=== PATIENT | female | born 1965 | race Caucasian/White ===

== ENCOUNTER 2017-10-23 09:52 | Outpatient (CLI) | payer OTHER | END 2017-10-23 16:07 | disposition home or self-care (01) | LOC: TOM 09:52 | DX: R10.2 Pelvic and perineal pain (principal) ==

== ENCOUNTER 2018-10-14 07:52 | Outpatient (CLI) | payer OTHER | END 2018-10-14 08:00 | disposition home or self-care (01) | LOC: NUCLEAR 07:52 | DX: I11.9 Hypertensive heart disease without heart failure (principal); I51.9 Heart disease, unspecified; I34.0 Nonrheumatic mitral (valve) insufficiency; E88.81 Metabolic syndrome and other insulin resistance; R73.01 Impaired fasting glucose ==

== ENCOUNTER → 2024-09-01 | Emergency (ER) | payer OTHER ==
[~2024-09-01] VITALS: Ht 165.1 cm; Wt 86.2 kg
[~2024-09-01] MED LIST: 0.9 % SODIUM CHLORIDE 1,000 ML IV STA; CLONAZEPAM0.25 MG; HYZAAR 100-251 EACH; MORPHINE SULFATE 4 MG/ML VIAL IV STA
[2024-09-01 10:11] LABS: HEMATOCRIT 39.9 % (36.0-45.00); HEMOGLOBIN 13.5 g/dL (12.0-15.00); MEAN CELL VOLUME 92.8 fL (80.00-100.00); MEAN CORPUSCULAR HEMOGLOBIN 31.4 pg (27.00-32.0); MEAN CORPUSCULAR HGB CONC 33.8 g/dl (32.0-36.0); PLATELET COUNT 422 K/uL (150-450); RED BLOOD COUNT 4.29 M/uL (4.00-6.00); RED CELL DISTRIBUTION WIDTH 15.1 % (11.5-14.5)
[2024-09-01 10:44] LABS: ALBUMIN 3.7 gm/dL (3.4-5.0); ALKALINE PHOSPHATASE 136 U/L (50-136); ALT/SGPT 29 U/L (12-78); ANION GAP 11 (10.0-20.0); AST/SGOT 15 U/L (15-37); BILIRUBIN TOTAL 0.42 mg/dL (0.3-1.2); BILIRUBIN,CONJUGATED < 0.10 mg/dL (0.0-0.2); BILIRUBIN,UNCONJUGATED 0.32 mg/dL (0.0-0.6); BLOOD UREA NITROGEN 12 mg/dL (7-18); BUN CREA RATIO 14 (7.0-25.0); CALCIUM 10.2 mg/dL (8.5-10.1); CARBON DIOXIDE 26 mEq/L (21-32); CHLORIDE 107 mmol/L (98-107); CREATININE SERUM 0.88 mg/dL (0.55-1.02); GFR 66.23; GLUCOSE FASTING 94 mg/dL (65-100); OSMOLALITY SERUM 279 MOSM/KG (275-295); POTASSIUM 3.63 mEq/L (3.5-5.1); SODIUM 140 mmol/L (136-145); TOTAL PROTEIN 7.9 gm/dL (6.4-8.2)
[2024-09-01 12:40] LABS: URINE APPEARANCE Clear; URINE BILIRRUBIN Negative (NEGATIVE); URINE BLOOD Negative; URINE COLOR Yellow; URINE GLUCOSE Negative (NEGATIVE); URINE KETONE Negative (NEGATIVE); URINE LEUKOCYTE Large; URINE NITRATE Negative; URINE PROTEIN Negative (NEGATIVE); URINE UROBILINOGEN 0.2 E.U./dl
[2024-09-01 12:45] LABS: URINE BACTERIA 879.8 uL (0.0-1933); URINE EPITHELIAL CELLS 34.5 uL (0.0-38.8); URINE RBC 23.4 uL (0.0-20.8); URINE WBC 153.2 uL (0.0-23.2)
[2024-09-01 13:12] LABS: URINE CAST 0.14 uL (0.0-1.40)
== END | disposition left against medical advice (07) ==
LOC: ER 08:24
PROVIDERS: General Practice
DX: T50.905A Adverse effect of unspecified drugs, medicaments and biological substances, initial encounter (principal); I10 Essential (primary) hypertension; Z88.2 Allergy status to sulfonamides

== ENCOUNTER 2025-01-11 10:00 | Emergency (ER) | payer OTHER ==
[~2025-01-11] VITALS: Ht 165.1 cm; Wt 86.2 kg
[~2025-01-11 10:00] MED LIST changes: -0.9 % SODIUM CHLORIDE 1,000 ML IV STA; -MORPHINE SULFATE 4 MG/ML VIAL IV STA
[2025-01-11] MEDS ORDERED: VENLAFAXINE HC150 MG PO (10:13)
[2025-01-11] MEDS ORDERED: METHYLPREDNISOLONE SOD SUCC 125 MG VIAL ONE (10:38)
[2025-01-11] MEDS ORDERED: 0.9 % SODIUM CHLORIDE 1,000 ML IV ONE (10:45)
[2025-01-11] MEDS ORDERED: PANTOPRAZOLE SODIUM 40 MG/VIAL VIAL IV ONE (10:45)
[2025-01-11] MEDS ORDERED: METHYLPREDNISOLONE SOD SUCC 125 MG VIAL IV ONE (10:45)
[2025-01-11] MEDS ORDERED: MORPHINE SULFATE 4 MG/ML VIAL IV ONE (10:45)
[2025-01-11 11:48] LABS: HEMATOCRIT 35.9 % (34.1-44.9); HEMOGLOBIN 12.2 g/dL (11.2-15.7); MEAN CORPUSCULAR HEMOGLOBIN 31.4 pg (25.6-32.2); RED BLOOD COUNT 3.89 M/uL (3.93-5.22); RED CELL DISTRIBUTION WIDTH 14.9 % (11.6-14.4)
[2025-01-11 11:49] LABS: BASO % 0.4 % (0.1-1.2); EOS # 0.08 (0.04-0.54); EOS % 1.6 % (0.7-7.0); LYMPH # 1.03 (1.18-3.74); LYMPH % 20.8 % (19.3-53.1); MONO # 0.37 (0.24-0.82); MONO % 7.5 % (4.7-12.5); NEUT # 3.45 (1.56-6.13); NEUT % 69.5 % (34.0-71.1); PLATELET COUNT 331 K/uL (163-369)
[2025-01-11 12:05] LABS: PARTIAL THROMBOPLASTIN TIME 23.1 SECONDS (22.0-34.0); PROTHROMBIN TIME 10.9 SECONDS (9.0-11.5)
[2025-01-11 12:43] LABS: URINE APPEARANCE Clear; URINE BILIRRUBIN Negative (NEGATIVE); URINE BLOOD Negative; URINE COLOR Yellow; URINE GLUCOSE Negative (NEGATIVE); URINE KETONE Trace (NEGATIVE); URINE LEUKOCYTE Small; URINE NITRATE Negative; URINE PROTEIN Negative (NEGATIVE)
[2025-01-11 12:47] LABS: URINE BACTERIA 473.5 uL (0.0-1933); URINE EPITHELIAL CELLS 32.1 uL (0.0-38.8); URINE RBC 11.1 uL (0.0-20.8); URINE WBC 32.2 uL (0.0-23.2)
[2025-01-11 12:50] LABS: URINE CAST 0.14 uL (0.0-1.40)
[2025-01-11 14:41] LABS: ALBUMIN 3.6 gm/dL (3.4-5.0); BILIRUBIN TOTAL 0.47 mg/dL (0.3-1.2); CALCIUM 9.4 mg/dL (8.5-10.1); CREATININE SERUM 0.99 mg/dL (0.55-1.02); GFR 57.81; GLOBULINA 3.2 G/DL (2.4-3.5); POTASSIUM 4.16 mEq/L (3.5-5.1); TOTAL PROTEIN 6.8 gm/dL (6.4-8.2)
[2025-01-11] MEDS ORDERED: DIPHENHYDRAMINE HCL 50 MG/ML VIAL 1ML ONE (15:50)
[2025-01-11] MEDS ORDERED: DIPHENHYDRAMINE HCL 50 MG/ML VIAL 1ML IV ONE (16:00)
[2025-01-11] MEDS ORDERED: DEXAMETHASONE SODIUM PHOSPHATE 4 MG/ML VIAL IV STA (20:36)
== END 2025-01-11 21:00 | disposition home or self-care (01) ==
LOC: ER 10:05
PROVIDERS: General Practice
DX: N63.41 Unspecified lump in right breast, subareolar (principal); Z88.2 Allergy status to sulfonamides; Z85.3 Personal history of malignant neoplasm of breast; Z85.42 Personal history of malignant neoplasm of other parts of uterus; E11.9 Type 2 diabetes mellitus without complications; I10 Essential (primary) hypertension